=== PATIENT | male | born 1995 | race American Indian/Alaskan Native ===

== ENCOUNTER 2020-10-10 05:23 | Observation (INO) | payer SELFPAY ==
[2020-10-10 08:34] LABS: Bilirubin,Urine NEG (Negative); Blood,Urine NEG (Negative); Color,Urine Yellow (Yellow); Mucus,Urine FEW /HPF; Protein,Urine <15 mg/dL mg/dL (Negative); RBC,Urine < 1.0 /HPF (0.0-6.0); WBC,Urine < 1.0 /HPF (0.0-6.0)
[2020-10-10 08:47] LABS: Basophils % (Auto) 0.3 % (0.0-1.8); Eosinophils # (Auto) 0.2 K/mm3 (0.0-0.4); Eosinophils % (Auto) 2.9 % (0.0-4.3); Hemoglobin 12.9 gm/dl (11.8-15.2); Mean Corpuscular HGB Conc 34 % (32-34); Mean Corpuscular Volume 83 fl (84-94); Monocytes # (Auto) 0.8 K/mm3 (0.0-0.8); Monocytes % (Auto) 9.3 % (0.0-7.3); Platelet Count 177 K/mm3 (140-440); Red Blood Count 4.57 M/mm3 (3.65-5.03); Red Cell Distribution Width 13.4 % (13.2-15.2)
[2020-10-10] MEDS ORDERED: KETOROLAC 30 MG/1 ML INJ IV ONE (09:04)
--- NOTE | 2020-10-10 09:06 | Emergency Department Report ---
ED Abdominal Pain HPI - General Chief Complaint: Abdominal Pain Stated Complaint: ABD PAIN Time Seen by Provider: 10/10/20 09:02 Source: patient Mode of arrival: Ambulatory Limitations: No Limitations - History of Present Illness Initial Comments: There is a pleasant 25-year-old male with no pertinent past medical history who presents to the emergency department chief complaint of right lower quadrant abdominal pain that has been present over the past 5 days. He does report a previous surgical history of an umbilical hernia repair when he was a child. He also reports a history of asthma which he is no longer dealing with. He reports some associated nausea without vomiting. He reports his appetite has been normal. He denies any dysuria, frequency, urgency, hematuria, fever, chills, night sweats, headache, dizziness, blurry vision, chest pain, shortness of breath, melena, hematochezia, weakness or any other associated symptoms. - Related Data Allergies Allergy/AdvReac Type Severity Reaction Status Date / Time No Known Allergies Allergy Unverified 10/10/20 07:37 ED Review of Systems ROS: Stated complaint: ABD PAIN Other details as noted in HPI Comment: All other systems reviewed and negative Constitutional: denies: chills, fever Eyes: denies: eye pain, eye discharge, vision change ENT: denies: ear pain, throat pain Respiratory: denies: cough, shortness of breath, wheezing Cardiovascular: denies: chest pain, palpitations Endocrine: no symptoms reported Gastrointestinal: as per HPI, abdominal pain, nausea. denies: diarrhea Genitourinary: denies: urgency, dysuria Musculoskeletal: denies: back pain, joint swelling, arthralgia Skin: denies: rash, lesions Neurological: denies: headache, weakness, paresthesias Psychiatric: denies: anxiety, depression Hematological/Lymphatic: denies: easy bleeding, easy bruising ED Past Medical Hx - Past Medical History Previous Medical History?: Yes Hx Asthma: Yes - Surgical History Past Surgical History?: Yes Additional Surgical History: Umbilical hernia as a child - Social History Smoking Status: Never Smoker Substance Use Type: None ED Physical Exam - General Limitations: No Limitations General appearance: alert, in no apparent distress - Head Head exam: Present: atraumatic, normocephalic - Eye Eye exam: Present: normal appearance, PERRL, EOMI Pupils: Present: normal accommodation - ENT ENT exam: Present: normal exam, normal orophraynx, mucous membranes moist - Neck Neck exam: Present: normal inspection, full ROM. Absent: tenderness, meningismus - Respiratory Respiratory exam: Present: normal lung sounds bilaterally. Absent: respiratory distress, wheezes, rales, rhonchi, stridor - Cardiovascular Cardiovascular Exam: Present: regular rate, normal rhythm, normal heart sounds. Absent: systolic murmur, diastolic murmur, rubs, gallop - GI/Abdominal GI/Abdominal exam: Present: soft, tenderness (Tenderness to palpation over the right lower quadrant, no rebound or guarding. No obvious hernias.), guarding, normal bowel sounds. Absent: distended, rebound, rigid - Rectal Rectal exam: Present: deferred - exam: Present: other (Patient declined exam denies any symptoms) - Extremities Exam Extremities exam: Present: normal inspection, full ROM, normal capillary refill. Absent: tenderness - Back Exam Back exam: Present: normal inspection, full ROM. Absent: tenderness, CVA tenderness (R), CVA tenderness (L) - Neurological Exam Neurological exam: Present: alert, oriented X3 - Psychiatric Psychiatric exam: Present: normal affect, normal mood - Skin Skin exam: Present: warm, dry, intact, normal color. Absent: rash ED Course Vital Signs 10/10/20 07:37 Temperature 98.3 F Pulse Rate 48 L Respiratory 20 Rate Blood Pressure 126/67 O2 Sat by Pulse 98 Oximetry - Reevaluation(s) Reevaluation #1: 10/10/20 10:30 CT returned concerning for an acute appendicitis. No signs of rupture. Paged surgery. Ordered Zosyn. Discussed with attending physician. - Consultations Consultation #1: 10/10/20 10:[address] Amaya who agreed to see the patient and requested we admit to internal medicine service. Consultation #2: 10/10/20 10:40 Spoke with internal medicine physician Dr. Diaz who agreed to admit. ED Medical Decision Making - Lab Data Result diagrams: 10/10/20 08:05 10/10/20 08:05 Lab Results 10/10/20 10/10/20 10/10/20 Range/Units 08:05 08:05 Unknown WBC 8.4 (4.5-11.0) K/mm3 RBC 4.57 (3.65-5.03) M/mm3 Hgb 12.9 (11.8-15.2) gm/dl Hct 38.0 (35.5-45.6) % MCV 83 L (84-94) fl MCH 28 (28-32) pg MCHC 34 (32-34) % RDW 13.4 (13.2-15.2) % Plt Count 177 (140-440) K/mm3 Lymph % (Auto) 12.0 L (13.4-35.0) % [place] % (Auto) 9.3 H (0.0-7.3) % Eos % (Auto) 2.9 (0.0-4.3) % Baso % (Auto) 0.3 (0.0-1.8) % Lymph # (Auto) 1.0 L (1.2-5.4) K/mm3 [place] # (Auto) 0.8 (0.0-0.8) K/mm3 Eos # (Auto) 0.2 (0.0-0.4) K/mm3 Baso # (Auto) 0.0 (0.0-0.1) K/mm3 Seg Neutrophils % 75.5 H (40.0-70.0) % Seg Neutrophils # 6.3 (1.8-7.7) K/mm3 Sodium 139 (137-145) mmol/L Potassium 3.8 (3.6-5.0) mmol/L Chloride 103.7 (98-107) mmol/L Carbon Dioxide 28 (22-30) mmol/L Anion Gap 11 mmol/L BUN 7 L (9-20) mg/dL Creatinine 0.8 (0.8-1.3) mg/dL Estimated GFR > 60 ml/min BUN/Creatinine Ratio 9 % Glucose 92 (75-100) mg/dL Calcium 9.5 (8.4-10.2) mg/dL Total Bilirubin 0.30 (0.1-1.2) mg/dL AST 12 (5-40) units/L ALT 6 L (7-56) units/L Alkaline Phosphatase 68 (35-129) units/L Total Protein 7.4 (6.3-8.2) g/dL Albumin 4.2 (3.9-5) g/dL Albumin/Globulin Ratio 1.3 % Lipase 10 L (13-60) units/L Urine Color Yellow (Yellow) Urine Turbidity Clear (Clear) Urine pH 6.0 (5.0-7.0) Ur Specific [place] 1.018 (1.003-1.030) Urine Protein <15 mg/dl (Negative) mg/dL Urine Glucose (UA) Neg (Negative) mg/dL Urine Ketones Neg (Negative) mg/dL Urine Blood Neg (Negative) Urine Nitrite Neg (Negative) Urine Bilirubin Neg (Negative) Urine Urobilinogen 2.0 (<2.0) mg/dL Ur Leukocyte Esterase Neg (Negative) Urine WBC (Auto) < 1.0 (0.0-6.0) /HPF Urine RBC (Auto) < 1.0 (0.0-6.0) /HPF Urine Mucus Few /HPF - Radiology Data Radiology results: report reviewed, image reviewed CT ABDOMEN AND PELVIS WITH CONTRAST INDICATION / CLINICAL INFORMATION: RLQ abdominal pain 100 ML OMNI 300 . TECHNIQUE: Axial CT images were obtained through the abdomen and pelvis after IV contrast. All CT scans at this location are performed using CT dose reduction for ALARA by means of automated exposure control. COMPARISON: None available. FINDINGS: LOWER CHEST: No significant abnormality. LIVER: No significant abnormality. GALLBLADDER: No significant abnormality. BILE DUCTS: No significant abnormality. PANCREAS: No significant abnormality. SPLEEN: No significant abnormality. ADRENALS: No significant abnormality. RIGHT KIDNEY / URETER: No significant abnormality. LEFT KIDNEY / URETER: No significant abnormality. STOMACH / SMALL BOWEL: No significant abnormality. COLON: No significant abnormality. APPENDIX: Dilated and fluid-filled appendix with mucosal enhancement and small appendicoliths. This is best seen on axial series 2 image 125 and coronal image 28. No periappendiceal abscess. PERITONEUM: Trace free fluid in the pelvis. No free air. No fluid collection. LYMPH NODES: No significant adenopathy. AORTA / ARTERIES: No significant abnormality. IVC / VEINS: No significant abnormality. URINARY BLADDER: No significant abnormality. REPRODUCTIVE ORGANS: No significant abnormality. ADDITIONAL FINDINGS: None. SKELETAL SYSTEM: No significant abnormality. IMPRESSION: 1. Dilated, fluid-filled appendix with appendicoliths. While this finding could represent acute appendicitis, mucocele of the appendix should be considered. No abscess. Surgical consultation is recommended. - Medical Decision Making CT confirmed an acute appendicitis. Spoke to surgery who agreed to admit the patient but requested IMS bring the patient to the hospital. Spoke with hospitalist physician who agreed to admit. Dr. Amaya agreed with starting IV Zosyn. Patient was agreeable to stay. Patient will be made n.p.o. - Differential Diagnosis Acute appendicitis, inguinal hernia, ureteral colic Critical care attestation.: If time is entered above; I have spent that time in minutes in the direct care of this critically ill patient, excluding procedure time. ED Disposition Clinical Impression: Acute appendicitis Qualifiers: Acute appendicitis type: with localized peritonitis Appendicitis gangrene presence: without gangrene Appendicitis perforation presence: without perforation Appendicitis abscess presence: without abscess Qualified Code(s): K35.30 - Acute appendicitis with localized peritonitis, without perforation or gangrene Disposition: 09 ADMITTED INPATIENT Is pt being admited?: Yes Does the pt Need Aspirin: No Condition: Stable Time of Disposition: 10:58
[2020-10-10 09:09] LABS: Alanine Aminotransferase 6 units/L (7-56); Albumin 4.2 g/dL (3.9-5); BUN/Creatinine Ratio 9; Blood Urea Nitrogen 7 mg/dL (9-20); Calcium 9.5 mg/dL (8.4-10.2); Hemolysis Index 7
--- NOTE | 2020-10-10 10:13 | Cat Scan Report ---
CT ABDOMEN AND PELVIS WITH CONTRAST INDICATION / CLINICAL INFORMATION: RLQ abdominal pain 100 ML OMNI 300 . TECHNIQUE: Axial CT images were obtained through the abdomen and pelvis after IV contrast. All CT sc ans at this location are performed using CT dose reduction for ALARA by means of automated exposure c ontrol. COMPARISON: None available. FINDINGS: LOWER CHEST: No significant abnormality. LIVER: No significant abnormality. GALLBLADDER: No significant abnormality. BILE DUCTS: No significant abnormality. PANCREAS: No significant abnormality. SPLEEN: No significant abnormality. ADRENALS: No significant abnormality. RIGHT KIDNEY / URETER: No significant abnormality. LEFT KIDNEY / URETER: No significant abnormality. STOMACH / SMALL BOWEL: No significant abnormality. COLON: No significant abnormality. APPENDIX: Dilated and fluid-filled appendix with mucosal enhancement and small appendicoliths. This i s best seen on axial series 2 image 125 and coronal image 28. No periappendiceal abscess. PERITONEUM: Trace free fluid in the pelvis. No free air. No fluid collection. LYMPH NODES: No significant adenopathy. AORTA / ARTERIES: No significant abnormality. IVC / VEINS: No significant abnormality. URINARY BLADDER: No significant abnormality. REPRODUCTIVE ORGANS: No significant abnormality. ADDITIONAL FINDINGS: None. SKELETAL SYSTEM: No significant abnormality. IMPRESSION: 1. Dilated, fluid-filled appendix with appendicoliths. While this finding could represent acute appen dicitis, mucocele of the appendix should be considered. No abscess. Surgical consultation is recommen ded. Signer Name: Mirella Owen MD Signed: 10/10/2020 10:09 AM Workstation Name: [id number]
[2020-10-10] MEDS ORDERED: PIPERACIL/TAZOBACTA 4.5/NS 100 4.5 GM/100 ML VIAL IV ONE (10:29)
--- NOTE | 2020-10-10 10:57 | History and Physical Report ---
History of Present Illness Date of admission: 10/10/2020 Chief complaint: Abdominal pain History of present illness: HPI: 25-year-old male with pmhx/psh of juvenile asthma, umbillical hernia repair in childhood presenting to this facility with complaint of right lower quadrant abdominal pain x5 days. He states that the abdominal pain was associated with nausea but no vomiting. Appetite is normal. He denied any headache, fever, chills, night sweats, chest pain, shortness of breath, hematochezia. On my encounter he had no additional acute complaints then otherwise stated above. 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 No acute distress Head, Ears, Nose: Normocephalic, atraumatic. External ears, nose normal Eyes: Conjunctivae/corneas clear. No icterus. No ptosis. Neck: Supple, no meningeal signs Oral: dentition fair, no thrush Cardiovascular: S1, S2 normal. Respiratory: Good air entry, clear to auscultation bilaterally GI: Soft, non-tender; bowel sounds normal. No peritoneal signs. Musculoskeletal: No pedal edema, no cyanosis. Skin: No rash or abscess, see nursing assessment for full skin exam Hem/Lymphatic: No palpable cervical or supraclavicular nodes. No lymphangitis Psych: Mood ok. Affect normal Neurological: Awake, alert, oriented. No gross abnormality - Constitutional Vitals: Temp Pulse Resp BP Pulse Ox 98.3 F 48 L 20 126/67 98 10/10/20 07:37 10/10/20 07:37 10/10/20 07:37 10/10/20 07:37 10/10/20 07:37 Results - Labs CBC & Chem 7: 10/10/20 08:05 10/10/20 08:05 Labs: Laboratory Last Values WBC 8.4 K/mm3 (4.5-11.0) 10/10/20 08:05 RBC 4.57 M/mm3 (3.65-5.03) 10/10/20 08:05 Hgb 12.9 gm/dl (11.8-15.2) 10/10/20 08:05 Hct 38.0 % (35.5-45.6) 10/10/20 08:05 MCV 83 fl (84-94) L 10/10/20 08:05 MCH 28 pg (28-32) 10/10/20 08:05 MCHC 34 % (32-34) 10/10/20 08:05 RDW 13.4 % (13.2-15.2) 10/10/20 08:05 Plt Count 177 K/mm3 (140-440) 10/10/20 08:05 Lymph % (Auto) 12.0 % (13.4-35.0) L 10/10/20 08:05 [place] % (Auto) 9.3 % (0.0-7.3) H 10/10/20 08:05 Eos % (Auto) 2.9 % (0.0-4.3) 10/10/20 08:05 Baso % (Auto) 0.3 % (0.0-1.8) 10/10/20 08:05 Lymph # (Auto) 1.0 K/mm3 (1.2-5.4) L 10/10/20 08:05 [place] # (Auto) 0.8 K/mm3 (0.0-0.8) 10/10/20 08:05 Eos # (Auto) 0.2 K/mm3 (0.0-0.4) 10/10/20 08:05 Baso # (Auto) 0.0 K/mm3 (0.0-0.1) 10/10/20 08:05 Seg Neutrophils % 75.5 % (40.0-70.0) H 10/10/20 08:05 Seg Neutrophils # 6.3 K/mm3 (1.8-7.7) 10/10/20 08:05 Sodium 139 mmol/L (137-145) 10/10/20 08:05 Potassium 3.8 mmol/L (3.6-5.0) 10/10/20 08:05 Chloride 103.7 mmol/L (98-107) 10/10/20 08:05 Carbon Dioxide 28 mmol/L (22-30) 10/10/20 08:05 Anion Gap 11 mmol/L 10/10/20 08:05 BUN 7 mg/dL (9-20) L 10/10/20 08:05 Creatinine 0.8 mg/dL (0.8-1.3) 10/10/20 08:05 Estimated GFR > 60 ml/min 10/10/20 08:05 BUN/Creatinine Ratio 9 % 10/10/20 08:05 Glucose 92 mg/dL (75-100) 10/10/20 08:05 Calcium 9.5 mg/dL (8.4-10.2) 10/10/20 08:05 Total Bilirubin 0.30 mg/dL (0.1-1.2) 10/10/20 08:05 AST 12 units/L (5-40) 10/10/20 08:05 ALT 6 units/L (7-56) L 10/10/20 08:05 Alkaline Phosphatase 68 units/L (35-129) 10/10/20 08:05 Total Protein 7.4 g/dL (6.3-8.2) 10/10/20 08:05 Albumin 4.2 g/dL (3.9-5) 10/10/20 08:05 Albumin/Globulin Ratio 1.3 % 10/10/20 08:05 Lipase 10 units/L (13-60) L 10/10/20 08:05 Urine Color Yellow (Yellow) 10/10/20 Unknown Urine Turbidity Clear (Clear) 10/10/20 Unknown Urine pH 6.0 (5.0-7.0) 10/10/20 Unknown Ur Specific [place] 1.018 (1.003-1.030) 10/10/20 Unknown Urine Protein <15 mg/dl mg/dL (Negative) 10/10/20 Unknown Urine Glucose (UA) Neg mg/dL (Negative) 10/10/20 Unknown Urine Ketones Neg mg/dL (Negative) 10/10/20 Unknown Urine Blood Neg (Negative) 10/10/20 Unknown Urine Nitrite Neg (Negative) 10/10/20 Unknown Urine Bilirubin Neg (Negative) 10/10/20 Unknown Urine Urobilinogen 2.0 mg/dL (<2.0) 10/10/20 Unknown Ur Leukocyte Esterase Neg (Negative) 10/10/20 Unknown Urine WBC (Auto) < 1.0 /HPF (0.0-6.0) 10/10/20 Unknown Urine RBC (Auto) < 1.0 /HPF (0.0-6.0) 10/10/20 Unknown Urine Mucus Few /HPF 10/10/20 Unknown Assessment and Plan Assessment and plan: 1. Acute appendicitis with localized peritonitis, without perforation or gangrene Abdominal pain x5 days -Status post Toradol IV and Zosyn IV in emergency department. Vital signs stable on encounter -CT abdomen and pelvis: Concerning for acute appendicitis. Appendicoliths noted. Please refer to radiology report IV fluids -IV Toradol prn. General surgery (Dr Amaya) consulted, will take patient to the OR today We will follow up postop Full code N.p.o.
[2020-10-10] MEDS ORDERED: fentaNYL 100 MCG/2 ML INJ ONE (11:42)
[2020-10-10] MEDS ORDERED: propofoL 200 MG/20 ML VIAL IV ONE (11:42)
--- NOTE | 2020-10-10 11:43 | Anesthesia Day of Surgery ---
Anesthesia Day of Surgery - Day of Surgery Patient Examined: Yes Patient H&P Reviewed: Yes Patient is NPO: Yes
--- NOTE | 2020-10-10 11:43 | Anesthesia Consultation ---
Anesthesia Consult and Med Hx Date of service: 10/10/20 - Airway Anesthetic Teeth Evaluation: Poor (mutiple teeth missing), Chipped ROM Head & Neck: Adequate Mental/Hyoid Distance: Adequate Mallampati Class: Class II Intubation Access Assessment: Good - Pulmonary Exam CTA: Yes - Cardiac Exam Cardiac Exam: RRR - Pre-Operative Health Status ASA Pre-Surgery Classification: ASA2 Proposed Anesthetic Plan: General (acute appy) - Pulmonary Hx Asthma: Yes
[2020-10-10] MEDS ORDERED: MIDAZOLAM 2 MG/2 ML INJ ONE (11:44)
[2020-10-10] MEDS ORDERED: ACETAMINOPHEN 325 MG TAB PO PRN ×2 (11:59→14:15)
[2020-10-10] MEDS ORDERED: ONDANSETRON 4 MG/2 ML INJ IV PRN (11:59)
[2020-10-10] MEDS ORDERED: MORPHINE 2 MG/1 ML INJ IV PRN (11:59)
[2020-10-10] MEDS ORDERED: LIDOCAINE (1%) 10 MG/1 ML VIAL 20 ML MDV ONE (12:16)
[2020-10-10] MEDS ORDERED: BUPIVACAINE/PF (0.25%) 2.5 MG/ML 30 ML VIAL INFILTRATI ONE ×2 (12:17→13:06)
--- NOTE | 2020-10-10 12:31 | Consultation ---
History of Present Illness Consult date: 10/10/20 Reason for consult: abdominal pain - History of present illness History of present illness: 25-year-old male presented to the emergency room with a 5-day history of right lower quadrant abdominal pain. Patient denies ever having this pain before. The pain got progressively worse and is set by him to the emergency room. Patient co mplains of some nausea but no vomiting. Nothing in particular makes the pain better or worse. He complains of pain is about an 8 out of 10. Patient had a CT scan that showed dilation of his appendix with appendicoliths. There is no free air, signs of perforation, periappendiceal abscess. Past History Past Medical History: other (asthma) Past Surgical History: Other (umbilical hernia when a baby) Social history: smoking, other (smokes marijauna) Family history: no significant family history Medications and Allergies Allergies Allergy/AdvReac Type Severity Reaction Status Date / Time No Known Allergies Allergy Unverified 10/10/20 07:37 Active Meds: Active Medications Acetaminophen (Acetaminophen 325 Mg Tab) 650 mg PO Q4H PRN PRN Reason: Pain MILD(1-3)/Fever >100.5/MARTIN Ketorolac Tromethamine (Ketorolac 30 Mg/1 Ml Inj) 15 mg IV Q8H PRN PRN Reason: abdominal pain Stop: 10/15/20 14:59 Morphine Sulfate (Morphine 2 Mg/1 Ml Inj) 2 mg IV Q4H PRN PRN Reason: Pain, Moderate (4-6) Ondansetron HCl (Ondansetron 4 Mg/2 Ml Inj) 4 mg IV Q8H PRN PRN Reason: Nausea And Vomiting Sodium Chloride (Sodium Chloride 0.9% 10 Ml Flush Syringe) 10 ml IV BID NERI Sodium Chloride (Sodium Chloride 0.9% 10 Ml Flush Syringe) 10 ml IV PRN PRN PRN Reason: LINE FLUSH Review of Systems All systems: negative - Gastrointestinal abdominal pain, nausea - Genitourinary no dysuria Exam Vital Signs Temp Pulse Resp BP Pulse Ox 98.3 F 48 L 20 126/67 98 10/10/20 07:37 10/10/20 07:37 10/10/20 07:37 10/10/20 07:37 10/10/20 07:37 - General physical appearance Positive: well developed, no distress, moderate pain - Respiratory Positive: normal expansion, normal respiratory effort - Cardiovascular Heart Sounds: Present: S1 & S2 - Extremities Extremities: no ischemia - Abdomen Abdomen: Present: soft, surgical scars (tender to palpation RLQ). Absent: distended, guarding, rigid Results - Labs 10/10/20 08:05 10/10/20 08:05 Abnormal lab results 10/10/20 10/10/20 Range/Units 08:05 08:05 MCV 83 L (84-94) fl Lymph % (Auto) 12.0 L (13.4-35.0) % [place] % (Auto) 9.3 H (0.0-7.3) % Lymph # (Auto) 1.0 L (1.2-5.4) K/mm3 Seg Neutrophils % 75.5 H (40.0-70.0) % BUN 7 L (9-20) mg/dL ALT 6 L (7-56) units/L Lipase 10 L (13-60) units/L Diabetes panel 10/10/20 Range/Units 08:05 Sodium 139 (137-145) mmol/L Potassium 3.8 (3.6-5.0) mmol/L Chloride 103.7 (98-107) mmol/L Carbon Dioxide 28 (22-30) mmol/L BUN 7 L (9-20) mg/dL Creatinine 0.8 (0.8-1.3) mg/dL Glucose 92 (75-100) mg/dL Calcium 9.5 (8.4-10.2) mg/dL AST 12 (5-40) units/L ALT 6 L (7-56) units/L Alkaline Phosphatase 68 (35-129) units/L Total Protein 7.4 (6.3-8.2) g/dL Albumin 4.2 (3.9-5) g/dL Calcium panel 10/10/20 Range/Units 08:05 Calcium 9.5 (8.4-10.2) mg/dL Albumin 4.2 (3.9-5) g/dL Pituitary panel 10/10/20 Range/Units 08:05 Sodium 139 (137-145) mmol/L Potassium 3.8 (3.6-5.0) mmol/L Chloride 103.7 (98-107) mmol/L Carbon Dioxide 28 (22-30) mmol/L BUN 7 L (9-20) mg/dL Creatinine 0.8 (0.8-1.3) mg/dL Glucose 92 (75-100) mg/dL Calcium 9.5 (8.4-10.2) mg/dL Adrenal panel 10/10/20 Range/Units 08:05 Sodium 139 (137-145) mmol/L Potassium 3.8 (3.6-5.0) mmol/L Chloride 103.7 (98-107) mmol/L Carbon Dioxide 28 (22-30) mmol/L BUN 7 L (9-20) mg/dL Creatinine 0.8 (0.8-1.3) mg/dL Glucose 92 (75-100) mg/dL Calcium 9.5 (8.4-10.2) mg/dL Total Bilirubin 0.30 (0.1-1.2) mg/dL AST 12 (5-40) units/L ALT 6 L (7-56) units/L Alkaline Phosphatase 68 (35-129) units/L Total Protein 7.4 (6.3-8.2) g/dL Albumin 4.2 (3.9-5) g/dL - Imaging CT scan - abdomen: report reviewed, image reviewed CT scan - pelvis: report reviewed, image reviewed Assessment and Plan 25 year old male with acute appendicitis. Afebrile and stable. Pt consented for lap appy. Pt expressed understanding risks and benefits and signed informed consent.
[2020-10-10] MEDS ORDERED: ePHEDrine SULFATE 50 MG/1 ML INJ ONE (12:41)
[2020-10-10] MEDS ORDERED: SODIUM CHLORIDE 0.9% IRR 1,500 ML BOTTLE IR ONE (13:04)
[2020-10-10] MEDS ORDERED: LIDOCAINE (1%) 10 MG/1 ML VIAL 20 ML MDV INFILTRATI ONE (13:04)
[2020-10-10] MEDS ORDERED: NEOSTIGMINE 10MG/10 ML INJ MDV ONE (13:09)
[2020-10-10] MEDS ORDERED: ONDANSETRON 4 MG/2 ML INJ ONE (13:09)
[2020-10-10] MEDS ORDERED: PHENYLEPHRINE 10 MG/1 ML INJ SDV ONE (13:09)
[2020-10-10] MEDS ORDERED: dexAMETHasone 20 MG/5 ML VIAL ONE (13:09)
[2020-10-10] MEDS ORDERED: GLYCOPYRROLATE 0.4 MG/2 ML INJ ONE (13:09)
[2020-10-10] MEDS ORDERED: KETOROLAC 30 MG/1 ML INJ ONE (13:14)
[2020-10-10] MEDS ORDERED: SUGAMMADEX SODIUM 200 MG/2 ML VIAL IV ONE (13:34)
[2020-10-10] MEDS ORDERED: LACTATED RINGERS 1,000 ML ONE (14:05)
--- NOTE | 2020-10-10 14:09 | Operative Report ---
Operative Report Operative Report: Dates of Service: 10/10/2020 Primary Surgeon: Arpita Amaya MD Procedure: Laparoscopic Appendectomy Anesthesia: GETA Pre-Operative Diagnosis: acute appendicitis Post-Operative Diagnosis: Same Indications for Procedure: 25 year old male with acute appendcitis. Pt signed informed consent. Description of Procedure(s): The patient was brought to the operating room and underwent general anesthesia after lower extremity SCD were placed. The abdomen was prepped and draped in the standard fashion. IV antibiotics were given and a time out was performed. Using a veress needle via a stab incision in the umbilicus, the abdomen was insuflated to a pressure of 15mmHg. Using optivew t echnique, a 5mm trocar was placed just superior and to the left of the umbilicus. There was no gross injury noted to any intra-abdominal structures. After which working trocars were placed under direct visualization. A 12 mm trocar was placed in left mid abdomen, and a 5 mm trocar was inserted in the suprapubic area. The patient was placed in slight Trendelenburg position and tilted towards his left side. The cecum was identified and mobilized, as well as the terminal ileum. There was no gross purulent fluid. The appendix was noted to be retrocecal. The mesoappendix was transected with the LigaSure. The appendix was then taken at its base with a white load on a laparoscopic stapler. The staple line was inspected and found to be hemostatically sound and secure. There was minimal irrigation of the right lower quadrant. The appendix was placed in Endo Catch bag. It was then retrieved via the 12 mm trocar. The fascia was then closed using a #1 vicryl and a suture passer device. Trocars removed under direct visualization. The insufflation was then terminated. The skin incisions were closed using 4-0 Monocryl sutures. All the wounds dressed with dermabond. The patient tolerated the procedure well, was extubated and taken to the recovery room in satisfactory condition. Specimen: appendix Complications: none immediate EBl: minimal Findings: dilated tip of appendix with no signs of gross perforation
[2020-10-10] MEDS ORDERED: HYDROmorphone 1 MG/1 ML INJ IV PRN (14:15)
[2020-10-10] MEDS ORDERED: LACTATED RINGERS 1,000 ML IV SCH ×2 (14:15→15:03)
--- NOTE | 2020-10-10 14:18 | Post Anesthesia Evaluation ---
- Post Anesthesia Evaluation Patient Participated: Yes Airway Patent: Yes Stable Respiratory Function: Yes Nausea/Vomiting: No Temp > 96.8F: Yes Pain Manageable: Yes Adequeate Hydration: Yes Anesthesia Complications: No Block Receding Appropriately: Not Applicable Patient on Ventilator: No
[2020-10-10] MEDS ORDERED: KETOROLAC 30 MG/1 ML INJ IV PRN (15:00)
[2020-10-10] MEDS ORDERED: oxyCODONE /ACETAMINOPHEN 5-325MG TAB PO PRN (15:03)
[2020-10-10] MEDS: PIPERACILLIN/TAZOBACTAM 3.375 3.375 GM/50 ML BAG IV SCH (21:15)
[2020-10-11] MEDS: PIPERACILLIN/TAZOBACTAM 3.375 3.375 GM/50 ML BAG IV SCH (03:01)
[2020-10-11 08:25] VITALS: BP 95/52
[2020-10-11 09:03] LABS: Basophils % (Auto) 0.1 % (0.0-1.8); Hematocrit 39.1 % (35.5-45.6); Hemoglobin 13.1 gm/dl (11.8-15.2); Lymphocytes # (Auto) 0.7 K/mm3 (1.2-5.4); Lymphocytes % (Auto) 6.9 % (13.4-35.0); Mean Corpuscular HGB Conc 34 % (32-34); Mean Corpuscular Volume 83 fl (84-94); Monocytes # (Auto) 0.8 K/mm3 (0.0-0.8); Monocytes % (Auto) 7.1 % (0.0-7.3); Platelet Count 199 K/mm3 (140-440); Red Blood Count 4.73 M/mm3 (3.65-5.03); Red Cell Distribution Width 13.6 % (13.2-15.2)
--- NOTE | 2020-10-11 10:08 | Discharge Summary ---
Providers - Providers Date of Admission: 10/10/20 14:31 Date of discharge: 10/11/20 Attending physician: DILCIA AVILA MD 10/10/20 11:17 Consult to Physician [CONS] Stat Comment: SANDIE Grossman spoke with Dr. Amaya @ [id number] Consulting Provider: FILIPE AAMYA Physician Instructions: Reason For Exam: Acute Appendicits Primary care physician: DELIMER Hospitalization Reason for admission: Abd pain. Condition: Fair Procedures: appendectomy Hospital course: HPI: 25-year-old male with pmhx/psh of juvenile asthma, umbillical hernia repair in childhood presenting to this facility with complaint of right lower quadrant abdominal pain x5 days. He states that the abdominal pain was associated with nausea but no vomiting. Appetite is normal. He denied any headache, fever, chills, night sweats, chest pain, shortness of breath, hematochezia. Patient underwent the appendectomy with Dr. Amaya and tolerated it well. This AM tolerating diet. Abdominal discomfort improved. Will plan for discharge to home. Patient to go home with rx for prn percocet x 3 days. Disposition: 01 HOME / SELF CARE / HOMELESS Final Discharge Diagnosis (Prints w/discharge instructions): Acute Appendicitis Time spent for discharge: 25 - Discharge Diagnoses (1) Acute appendicitis Status: Acute Qualifiers: Acute appendicitis type: with localized peritonitis Appendicitis gangrene presence: without gangrene Appendicitis perforation presence: without perforation Appendicitis abscess presence: without abscess Qualified Code(s): K35.30 - Acute appendicitis with localized peritonitis, without perforation or gangrene Core Measure Documentation - Palliative Care Palliative Care/ Comfort Measures: Not Applicable - Core Measures Any of the following diagnoses?: none Exam - Physical Exam Narrative exam: Physical Exam: Constitutional: Alert, cooperative. No acute distress Head, Ears, Nose: Normocephalic, atraumatic. External ears, nose normal Eyes: Conjunctivae/corneas clear. No icterus. No ptosis. Neck: Supple, no meningeal signs Oral: dentition fair, no thrush Cardiovascular: S1, S2 normal. Respiratory: Good air entry, clear to auscultation bilaterally GI: Soft, non-tender; bowel sounds normal. No peritoneal signs. incision scar site from appy clean. Musculoskeletal: No pedal edema, no cyanosis. Skin: No rash or abscess, see nursing assessment for full skin exam Hem/Lymphatic: No palpable cervical or supraclavicular nodes. No lymphangitis Psych: Mood ok. Affect normal Neurological: Awake, alert, oriented. No gross abnormality - Constitutional Vitals: Temp Pulse Resp BP Pulse Ox 97.9 F 48 L 16 95/52 99 10/11/20 08:04 10/11/20 08:04 10/11/20 08:04 10/11/20 08:04 10/11/20 08:04 Plan Activity: advance as tolerated Weight Bearing Status: Weight Bear as Tolerated Diet: regular Wound: keep clean and dry, per your surgeon's advice Follow up with: FILIPE AMAYA MD [Staff Physician] - 7 Days PRIMARY CARE, [Primary Care Provider] - 7 Days Prescriptions: oxyCODONE /ACETAMINOPHEN [Percocet 5/325 mg] 2 tab PO Q8H PRN 3 Days #9 tablet PRN Reason: Pain, Moderate (4-6)
[2020-10-11] MEDS ORDERED: PIPERACILLIN/TAZOBACTAM 3.375 3.375 GM/50 ML BAG IV SCH (12:00)
== END 2020-10-11 12:56 | disposition home or self-care (01) ==
LOC: ED 05:23 → 4A 14:31
PROVIDERS: ADMIT Internal Medicine; ATTEND Internal Medicine
DX: K35.30 Acute appendicitis with localized peritonitis, without perforation or gangrene (principal); J45.909 Unspecified asthma, uncomplicated; Z79.899 Other long term (current) drug therapy; Z98.890 Other specified postprocedural states
CPT/HCPCS: 36415; 44970; 74177; 80053; 81001; 83690; 85025; 88304; 96365; 96366; 96375; 99285; G0378; J1100; J1885; J2250; J2370; J2405; J2543; J2704; J2710; J3010; Q9967; J7120